=== PATIENT | female | born 1970 | race Caucasian/White ===

== ENCOUNTER 2023-08-09 18:35 | Emergency (ER) | payer MEDICAID ==
[~2023-08-09] VITALS: Ht 157.5 cm; Wt 77.3 kg
[~2023-08-09 18:35] MED LIST: ONDA4TAB12 PO
[2023-08-09 19:14] VITALS: BP 167/98; PULSE 91; RESP 16; TEMP 97.7; O2SAT 100
[2023-08-09] MEDS: dexamethasone sod phosphate 10mg/ml inj PO STA (21:12)
[2023-08-09] MEDS: amox tr/potassium clavulanate 875/125mg TAB PO ONE (21:13)
[2023-08-09] MEDS: DOXYCYCLINE 100MG CAPSULE PO STA (21:13)
[2023-08-09] MEDS ORDERED: PRED20TA PO (21:30)
[2023-08-09] MEDS ORDERED: ALBU8HFA PO (21:30)
[2023-08-09] MEDS ORDERED: AMOX-117 PO (21:30)
== END 2023-08-09 22:05 | disposition home or self-care (01) ==
LOC: ER 18:36
DX: J20.9 Acute bronchitis, unspecified (principal); F15.90 Other stimulant use, unspecified, uncomplicated; Z79.899 Other long term (current) drug therapy; Z79.2 Long term (current) use of antibiotics
CPT/HCPCS: 71045; 99284; J1100

== ENCOUNTER 2024-10-24 11:31 | Emergency (ER) | payer MEDICAID ==
[~2024-10-24] VITALS: Ht 154.9 cm; Wt 73.9 kg
[~2024-10-24 11:31] MED LIST changes: +ONDA-243 PO; -ONDA4TAB12 PO
[2024-10-24 11:32] VITALS: BP 146/98; PULSE 100; RESP 16; TEMP 98.1; O2SAT 100
[2024-10-24 11:50] LABS: BILIRUBIN,URINE NEGATIVE (Neg); CLARITY,URINE SLIGHTLY CLOUDY (Clear); COLOR,URINE YELLOW (Yellow); GLUCOSE, URINE NEGATIVE (Neg); KETONES,URINE NEGATIVE (Neg); LEUKOCYTE ESTERASE ,URINE NEGATIVE (Neg); NITRITES, URINE NEGATIVE (Neg); OCCULT BLOOD,URINE TRACE-INTACT (Neg); PROTEIN,URINE NEGATIVE (Neg); UROBILINOGEN,URINE 0.2 E.U/dL (0.2-1.0)
[2024-10-24 11:51] LABS: URINE HCG NEGATIVE (NEG)
[2024-10-24 11:59] LABS: UA COLLECTION TYPE CLN CATCH MIDSTREAM
[2024-10-24 12:03] LABS: SQUAMOUS EPITHELIAL CELL,UR MODERATE /LPF (FEW)
[2024-10-24 12:04] LABS: BACTERIA,URINE 1+ /HPF (Neg); TRANSITIONAL EPI CELLS,URINE FEW /HPF
[2024-10-24 12:06] LABS: RBC,URINE 0-2 /HPF (0-2); WBC,URINE 0-4 /HPF (0-4)
[2024-10-24 12:09] LABS: MUCUS STRANDS MODERATE /LPF (Neg)
[2024-10-24] MEDS ORDERED: dexamethasone 4mg tablet PO ONE (12:20)
[2024-10-24] MEDS: DEXAMETHASONE 6 MG TABLET PO ONE (12:25)
--- NOTE | 2024-10-24 12:31 | Physician Documentation ---
History of Present Illness ~ Chief Complaint: Back Pain Stated Complaint: BACK PAIN Time Seen by MD: 11:56 OK to notify your PCP?: Yes Primary Medical Doctor: None Source: patient Mode of Arrival: POV Exam Limitations: no limitations HPI 54-year-old female with chief complaint left upper back pain which she states she was concerned that she could have some sort of cyst in her chest that may rupture. She states the reason why she is concerned about this as she had an ovarian cyst in her lower abdomen that they were concerned about was going to rupture and she was not sure if that could happen in her chest. She states the pain woke her up in the middle of the night. Pain is worse if she moves certain ways. Pain radiates to her left lower rib area. She took Excedrin which she states did help some with the pain. No fever, chills, chest pain, nvdc, sob, cough. Medication Reconciliation Allergies: Coded Allergies: No Known Allergies (Unverified , 07/29/15) Scheduled PRN ONDANSETRON ODT 4mg tablet (Ondansetron Odt), 1 TABLET PO Q6H PRN for nausea/vomiting Past Medical History Past Medical History: No Pertinent History Past Surgical History: no surgical history Drug Use: methamphetamine Lives In: Home Review of Systems All Other Systems at this time: Reviewed and Negative Physical Exam Physical Exam Vital Signs: Temperature: 98.1, Source: Oral, Heart Rate: 100, Respiratory Rate: 16, BP: 146/98, Pulse Oximetry: 100, Weight: 73.900 Oxygen Flow Rate: 0 Physical Exam GENERAL: Alert, no acute distress. HEENT: NCAT, EOMI, PERRL, normal oropharynx, moist oral mucosa. NECK: Supple, trachea midline. CARDIAC: Regular rate and rhythm, no murmurs, rubs, or gallops. PV: Equal distal pulses. No lower extremity edema, cap refill less than 2 seconds. RESPIRATORY: Equal breath sounds, clear to auscultation bilaterally, no respiratory distress. GASTROINTESTINAL: Non distended, soft, nontender, No guarding or rebound. MUSCULOSKELETAL: Normal range of motion, nontender, no swelling. Normal gait. NEUROLOGICAL: Awake, alert, and oriented x 3. SKIN: Warm/dry, no pallor, no rash. PSYCH: Alert and appropriate. Affect congruent with mood. Speech is clear. Good eye contact. Progress Results/Orders Results/Orders Completed Orders - ALMA ANDRE Dexamethasone 6mg Tablet (Dexamethasone (10/24/24 12:20) Vital Signs 10/24/24 11:32 Temp 98.1 Pulse 100 Resp 16 B/P (MAP) 146/98 Pulse Ox 100 O2 Flow Rate 0 Laboratory Tests Test 10/24/24 11:36 Urine Specimen Description Cln catch midstream Urine Color Yellow Urine Clarity Slightly cloudy Urine pH 6.0 Urine Specific [place] >=1.030 Urine Protein Negative Urine Glucose (UA) Negative Urine Ketones Negative Urine Occult Blood Trace-intact Urine Nitrite Negative Urine Bilirubin Negative Urine Urobilinogen 0.2 Urine Leukocyte Esterase Negative Urine RBC 0-2 Urine WBC 0-4 Urine Squamous Epithelial Cells Moderate Urine Transitional Epithelial Cells Few Urine Bacteria 1+ Urine Mucus Moderate Urine Culture Indicated Not ind Volume Urine Centrifuged 10 ml Urine HCG, Qualitative Negative Urine Comment Medical Decision Making Differential Dx:Considerations: Include: AAA, Aortic dissection, , Appendicitis, Bowel obstruction, Cholelithiasis, Cholangitis, DJD, Ectopic , Fracture, Hepatitis, HNP, Musculoskeletal pain, Pancreatitis, Pyelonephritis, Strain, Urinary obstruction, Urolithiasis, Ovarian torsion, Other Differential Diagnosis GIVEN THE FACT THAT PATIENT'S PAIN IS WORSE WITH MOVEMENTS AND THERE IS NO GASTROINTESTINAL COMPLAINTS I SUSPECT THAT HER PAIN IS MUSCULOSKELETAL. HER PAIN IS NOT RELATED TO EXERTION AND SHE HAS NO CARDIAC HISTORY. PAIN ALSO IMPROVES WITH EXCEDRIN. Departure Time of Disposition: 12:29 Disposition: 01 HOME / SELF CARE / HOMELESS Impression: Primary Impression: Strain of thoracic region Qualified Codes: S29.019A - Strain of muscle and tendon of unspecified wall of thorax, initial encounter Condition: Stable Discharge Instructions: Acute Back Pain, Adult Additional Instructions: PAIN IS MOST CONSISTENT WITH STRAIN OF YOUR THORACIC AREA OF YOUR BACK. YOU DO NOT HAVE ANY GASTROINTESTINAL SYMPTOMS. THE FACT THAT THE PAIN DID GET A LITTLE BIT BETTER WHEN YOU TOOK EXCEDRIN PRIOR TO COMING TO THE ER ALSO SUPPORTS MUSCULOSKELETAL ETIOLOGY. REASSURANCE GIVEN THAT THE OVARIAN CYST THAT YOU EXPERIENCE IS NOT SOMETHING THAT YOU WOULD EXPERIENCE IN YOUR CHEST AREA OR ANYTHING IN THIS AREA THAT WOULD CAUSE YOU A SIMILAR TYPE OF PAIN. RETURN TO THE ER IF YOU START EXPERIENCING ANY GASTROINTESTINAL SYMPTOMS SUCH NAUSEA, VOMITING OR IF YOU EXPERIENCE SHORTNESS OF BREATH OR ANY OTHER CONCERNING SYMPTOMS. THE MEDICATION WE GAVE YOU HERE WAS AN ANTI-INFLAMMATORY TYPE OF MEDICATION IT WILL NOT INTERACT WITH ANYTHING THAT YOU TAKE AT HOME AND IS CALLED [facility]. Referrals: NO PRIMARY CARE PROVIDER (PCP) Education Educated: Patient Educated regarding: diagnosis, treatment, need for follow up Signature Scribe Signature: Candido Attestation: ALMA HERNANDEZ Oct 24, 2024 12:31
== END 2024-10-24 12:36 | disposition home or self-care (01) ==
LOC: ER 11:32
DX: S29.012A Strain of muscle and tendon of back wall of thorax, initial encounter (principal); F15.90 Other stimulant use, unspecified, uncomplicated; X58.XXXA Exposure to other specified factors, initial encounter; Y93.89 Activity, other specified; Y92.89 Other specified places as the place of occurrence of the external cause; Y99.8 Other external cause status
CPT/HCPCS: 81001; 81025; 99283; J8540